=== PATIENT | male | born 2000 | race Caucasian/White ===

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

== ENCOUNTER 2023-05-31 23:09 | Emergency (ER) | payer BC, SELFPAY ==
[2023-05-31 23:11] VITALS: BP 138/81; PULSE 111; RESP 18; TEMP 36.7; BMI 24.6
[2023-05-31 23:13] VITALS: BP 138/81; PULSE 111; RESP 18; TEMP 36.7
--- OUTSIDE RECORDS SUMMARY | 2023-05-31 23:44 | XMS RPT_ITS | CCD ---
Author Name Unknown Address [address] [place] [address] Organization [facility] Care Team Providers Care Census Taker Name Role Phone Unavailable Primary Care Provider Tahir Jacobson MD Primary Care Provider TAHIR CURRY Primary Care Unavailable MINDA MILTON Referring Unavailable TAHIR CURRY Primary Care Unavailable TAHIR CURRY Referring Unavailable TAHIR CURRY Primary Care Unavailable TAHIR CURRY Attending Unavailable TAHIR CURRY Primary Care Unavailable Allergies Allergy Classification Reported Allergen(s) Allergy Type Date of Onset Reaction(s) Facility (4 sources) Seasonal allergy; Translations: [SEASONAL ALLERGIES] Allergy to substance 5 Other: See Comments [facility] Medications Completed/Discontinued Medications Medication Drug Class(es) Dates Sig (Normalized) Sig (Original) [id number] 200 actuat albuterol 0.09 mg/actuat metered dose inhaler (2 sources) beta2-Adrenergic Agonist Start: 08-18-2014 End: 01-29-2023 take 2 puff(s) by inhalation every six hours as needed for wheezing albuterol HFA (PROVENTIL HFA, VENTOLIN HFA) 90 mcg/actuation inhaler Indications: Acute bronchitis Inhale 2 Puffs as instructed every 6 hours as needed for Wheezing/Shortness of Breath. 1 Inhaler 2 08/18/2014 01/29/2023 Discontinued Problems Active Problems Problem Classification Problem Date Documented Date Episodic/Chronic Other non-traumatic joint disorders (1 source) Pain in right shoulder; Translations: [Pain in joint, shoulder region] 01-29-2023 Episodic Other nutritional; endocrine; and metabolic disorders (1 source) Unintentional weight loss; Translations: [Abnormal weight loss] 08-28-2023 Episodic Other upper respiratory disease (1 source) Seasonal allergy; Translations: [Other seasonal allergic rhinitis] 01-30-2023 Chronic Other upper respiratory infections (1 source) Sore throat symptom; Translations: [Acute pharyngitis, unspecified] Episodic Sprains and strains (1 source) Strain of muscle, fascia and tendon of lower back, initial encounter; Translations: [Lumbar strain, initial encounter] Onset: 05-21-2023 Episodic Past or Other Problems Problem Classification Problem Date Documented Date Episodic/Chronic Immunizations and screening for infectious disease (4 sources) Patient encounter status; Translations: [Encounter for screening for human immunodeficiency virus [HIV]] Onset: 01-29-2023 01-29-2023 Episodic Other nutritional; endocrine; and metabolic disorders (1 source) Abnormal weight loss; Translations: [Weight loss, non-intentional] Onset: 01-29-2023 Episodic Results Test Name Value Interpretation Reference Range Facil ity Vital Signs Date Time Vital Sign Value Performing Clinician Faci lity 01-29-2023 13:39-0400 Body height 177.2 cm Tahir Curry MD Work Phone: [facility] 01-29-2023 13:39-0400 Body weight 72.48 kg Tahir Curry MD Work Phone: [facility] 01-29-2023 13:39-0400 Diastolic blood pressure 68 mm[Hg] Tahir Curry MD Work Phone: [facility] 01-29-2023 13:39-0400 Heart rate 68 /min Tahir Curry MD Work Phone: [facility] 01-29-2023 13:39-0400 Respiratory rate 18 /min Tahir Curry MD Work Phone: [facility] 01-29-2023 13:39-0400 Systolic blood pressure 112 mm[Hg] Tahir Curry MD Work Phone: [facility] 12-04-2021 10:30-0400 Body temperature 97.5 [degF] Martha Fulton APRN.CNP Work Phone: [facility] 12-04-2021 10:30-0400 Body weight 65.77 kg Martha Fulton APRN.PERFORMANCE TESTER Work Phone: [facility] 12-04-2021 10:30-0400 Diastolic blood pressure 70 mm[Hg] Martha Fulton APRN.PERFORMANCE TESTER Work Phone: [facility] 12-04-2021 10:30-0400 Heart rate 61 /min Martha Fulton APRN.PERFORMANCE TESTER Work Phone: [facility] 12-04-2021 10:30-0400 Respiratory rate 20 /min Martha Fulton APRN.PERFORMANCE TESTER Work Phone: [facility] 12-04-2021 10:30-0400 SaO2% (BldA) [Mass fraction] 98 % Martha Fulton APRN.PERFORMANCE TESTER Work Phone: [facility] 12-04-2021 10:30-0400 Systolic blood pressure 92 mm[Hg] Martha Fulton APRN.PERFORMANCE TESTER Work Phone: [facility] Encounters Encounter Date Encounter Type Care Provider Facility Start: 05-21-2023 End: 05-21-2023 ambulatory TAHIR CURRY Facility:[facility] Start: 02-02-2023 Telephone encounter Tahir kohler MD Work Phone: [facility] Procedures Date Procedure Procedure Detail Performing Clinician Start: 12-04-2021 STREP A MOLECULAR (POC) Martha Fulton APRN.PERFORMANCE TESTER Work Phone: Plan of Treatment Date Care Activity Detail Author Start: 01-30-2024 COVID-19 VACCINE (#1) COVID-19 VACCI NE (#1) [facility] Immunizations Immunization Date Immunization Notes Care Provider Fa cility 07-21-2020 influenza, injectabl e, quadrivalent, preservative free Tahir Curry MD Work Phone: [facility] Work Phone: 07-21-2020 meningococcal B vacc ine, recombinant, OMV, adjuvanted Tahir Curry MD Work Phone: [facility] Work Phone: 04-09-2019 influenza, injectabl e, quadrivalent, preservative free Tahir Curry MD Work Phone: [facility] Work Phone: 04-09-2019 meningococcal B vacc ine, recombinant, OMV, adjuvanted Tahir Curry MD Work Phone: [facility] Work Phone: 12-03-2017 hepatitis A vaccine, pediatric/adolescent dosage, 2 dose schedule Tahir Curry MD Work Phone: [facility] Work Phone: 12-03-2017 meningococcal polysaccharide (groups A, C, Y and W-135) diphtheria toxoid conjugate vaccine (MCV4P) Tahir Curry MD Work Phone: [facility] Work Phone: 12-03-2017 varicella virus vaccine Vict kelvin Curry MD Work Phone: [facility] Work Phone: 12-03-2015 hepatitis A vaccine, pediatric/adolescent dosage, 2 dose schedule Tahir Curry MD Work Phone: [facility] Work Phone: 12-03-2015 Human Papillomavirus 9-valent vaccine Tahir Curry MD Work Phone: [facility] Work Phone: 01-07-2014 human papilloma viru s vaccine, quadrivalent Tahir Curry MD Work Phone: [facility] Work Phone: 01-07-2014 meningococcal polysaccharide (groups A, C, Y and W-135) diphtheria toxoid conjugate vaccine (MCV4P) Tahir Curry MD Work Phone: [facility] Work Phone: 01-07-2014 tetanus toxoid, redu yunior diphtheria toxoid, and acellular pertussis vaccine, adsorbed Tahir Curry MD Work Phone: [facility] Work Phone: 05-13-2013 influenza, live, intranasal, quadrivalent Tahir Curry MD Work Phone: [facility] Work Phone: 01-12-2011 influenza virus vacc ine, live, attenuated, for intranasal use Tahir Curry MD Work Phone: [facility] Work Phone: 01-28-2010 influenza virus vacc ine, live, attenuated, for intranasal use Tahir Curry MD Work Phone: [facility] Work Phone: 06-01-2009 novel influenza-H1N1 -09, preservative-free, injectable Tahir Curry MD Work Phone: [facility] Work Phone: 04-07-2009 novel influenza-H1N1 -09, preservative-free, injectable Tahir Curry MD Work Phone: [facility] Work Phone: 03-09-2009 influenza virus vacc ine, live, attenuated, for intranasal use Tahir Curry MD Work Phone: [facility] Work Phone: 05-04-2008 influenza virus vacc ine, live, attenuated, for intranasal use Tahir Curry MD Work Phone: [facility] Work Phone: 02-14-2006 diphtheria, tetanus toxoids and acellular pertussis vaccine, unspecified formulation Tahir Curry MD Work Phone: [facility] Work Phone: 02-14-2006 measles, mumps and rubella virus vaccine Tahir Curry MD Work Phone: [facility] Work Phone: 02-14-2006 poliovirus vaccine, inactivated Tahir Curry MD Work Phone: [facility] Work Phone: 05-08-2003 influenza virus vacc ine, whole virus Tahir Curry MD Work Phone: [facility] Work Phone: 04-02-2003 influenza virus vacc ine, whole virus Tahir Curry MD Work Phone: [facility] Work Phone: 12-24-2002 diphtheria, tetanus toxoids and acellular pertussis vaccine, unspecified formulation Tahir Curry MD Work Phone: [facility] Work Phone: 12-24-2002 pneumococcal conjuga te vaccine, 7 valent Tahir Curry MD Work Phone: [facility] Work Phone: 12-24-2002 varicella virus vaccine Vict kelvin Curry MD Work Phone: [facility] Work Phone: 06-13-2002 haemophilus influenz ae type b conjugate and Hepatitis B vaccine Tahir Curry MD Work Phone: [facility] Work Phone: 06-13-2002 measles, mumps and rubella virus vaccine Tahir Curry MD Work Phone: [facility] Work Phone: 06-13-2002 poliovirus vaccine, inactivated Tahir Curry MD Work Phone: [facility] Work Phone: 2001 diphtheria, tetanus toxoids and acellular pertussis vaccine, unspecified formulation Tahir Curry MD Work Phone: [facility] Work Phone: 2001 haemophilus influenz ae type b vaccine, PRP-T conjugate Tahir Curry MD Work Phone: [facility] Work Phone: 2001 pneumococcal conjuga te vaccine, 7 valent Tahir Curry MD Work Phone: [facility] Work Phone: 2001 diphtheria, tetanus toxoids and acellular pertussis vaccine, unspecified formulation Tahir Curry MD Work Phone: [facility] Work Phone: 2001 haemophilus influenz ae type b vaccine, PRP-T conjugate Tahir Curry MD Work Phone: [facility] Work Phone: 2001 pneumococcal conjuga te vaccine, 7 valent Tahir Curry MD Work Phone: [facility] Work Phone: 2001 poliovirus vaccine, inactivated Tahir Curry MD Work Phone: [facility] Work Phone: 2001 diphtheria, tetanus toxoids and acellular pertussis vaccine, unspecified formulation Tahir Curry MD Work Phone: [facility] Work Phone: 2001 haemophilus influenz ae type b conjugate and Hepatitis B vaccine Tahir Curry MD Work Phone: [facility] Work Phone: 2001 pneumococcal conjuga te vaccine, 7 valent Tahir Curry MD Work Phone: [facility] Work Phone: 2001 poliovirus vaccine, inactivated Tahir Curry MD Work Phone: [facility] Work Phone: 2001 hepatitis B vaccine, pediatric or pediatric/adolescent dosage Tahir Curry MD Work Phone: [facility] Work Phone: Payers Date Payer Category Payer Unknown [employer] PPO OOS [id number] 2021-Present [phone] [id number] [place] [address] PPO [id number] 2021 Unknown [employer] PPO OOS [id number] 2021-Present [phone] [address] [place] [address] PPO [id number] 2021 Unknown [id number] Social History Date Type Detail Facility Start: 08-18-2014 Tobacco smoking stat us NHIS Never smoked tobacco [facility] Start: 08-18-2014 Tobacco use and exposure Smoke less tobacco non-user [facility] Start: 12-04-2021 Alcohol intake Not Asked [facility] Start: 2001 Sex Assigned At Not on file [facility] Start: 11-24-2021 End: 12-04-2021 Exposure to SARS-CoV-2 (event) Not sure [facility] Start: 01-29-2023 Alcohol intake Current drinke r of alcohol (finding) [facility] Start: 05-11-2020 End: 01-29-2023 History of Social function [facility] Work Phone: Start: 05-11-2020 End: 01-29-2023 Alcohol Use Disorder Identification Test - Consumption [AUDIT-C] [facility] Work Phone: How often to you hav e a drink containing alcohol? 2-4 times a month [facility] Work Phone: How many standard dr inks containing alcohol do you have on a typical day? 3 or 4 [facility] Work Phone: How often do you hav e 6 or more drinks on 1 occasion? Less than monthly [facility] Work Phone: Adult Depression Scr eening Assessment 2 [facility] Work Phone: Start: 01-29-2023 Education 12 [facility] Progress note 05-21-2023 Note Date & Type Note Facility 05-21-2023 Note HNO ID: [id number] Author: Aroldo Jensen RT(R) Service: ? Author Type: Technologist Type: Progress Notes Filed: 05/21/2023 10:59 AM Note Text: Radiology Service Progress Note PATIENT NAME: Dea Flowers DATE OF SERVICE: May 21, 2023 TIME: 10:53 AM PATIENT IDENTITY VERIFICATION COMPLETED USING TWO (2) IDENTIFIERS: Name and Date of confirmed by patient verbally. FALL SCREENING: Has the patient had 2 falls in the last year or 1 fall with injury or currently using an Ambulatory Assistive Device (Walker, Cane, Wheelchair, Crutches, etc.)? No PATIENT GENDER DATA: Male PATIENT RELEVANT IMPLANT DATA REVIEWED: Not Applicable RADIOLOGY DEPARTMENT: General X-ray: Exam(s) Completed: Spine X-Ray(s): Lumbar AP / LAT / L5-S1 PERIPHERAL IV DATA: Not applicable SIGNED BY: RT Jessica(R) May 21, 2023 10:[address] [facility] Progress note 05-21-2023 Note Date & Type Note Facility 05-21-2023 Note HNO ID: [id number] Author: Minda Milton APRN.PERFORMANCE TESTER Service: ? Author Type: Nurse Practitioner Type: Progress Notes Filed: 05/21/2023 11:29 AM Note Text: This note was created using I.Systemsriter. Subjective Dea Flowers is a 23 year old male. 23 year old male with no PMH presents for back pain. 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 Has used Ibuprofen Has seen chiropractor for same Denies IV drug, saddle anesthesia, inability to ambulate or history of DM The history is provided by the patient. No chemical treatment operator was used. Back Pain This is a new problem. The current episode started more than 1 week ago. The problem occurs constantly. The problem has not changed since onset.The pain is associated with lifting heavy objects. The pain is present in the lumbar spine. Quality: sharp AND sore The pain does not radiate. The pain is at a severity of 5/10. The pain is moderate. The symptoms are aggravated by bending, twisting and certain positions. The pain is The same all the time. Stiffness is present All day. Pertinent negatives include no chest pain, no fever, no numbness, no weight loss, no headaches, no abdominal pain, no abdominal swelling, no bowel incontinence, no perianal numbness, no bladder incontinence, no dysuria, no pelvic pain, no leg pain, no paresthesias, no paresis, no tingling and no weakness. He has tried NSAIDs for the symptoms. The treatment provided mild relief. PAST MEDICAL HISTORY Diagnosis Date ADHD (attention deficit hyperactivity disorder) 04/08/2013 Depression with anxiety 09/03/2017 Major depressive disorder with single episode 06/28/2016 PAST SURGICAL HISTORY Procedure Laterality Date NONE ALLERGIES Seasonal Allergies MEDICATIONS cetirizine (ZYRTEC) 10 mg tablet Take 1 tablet by mouth once daily. predniSONE (DELTASONE) 10 mg tablet Take 4 tabs daily for 3 days, then 2 tabs daily for 3 days, then 1 tab daily for 3 days with food. cyclobenzaprine (FLEXERIL) 10 mg tablet Take 1 tablet by mouth three times a day as needed for muscle spasm. fluticasone (FLONASE) 50 mcg/actuation nasal spray Use 2 Sprays in each nostril once daily. Rinse mouth after use. (Patient not taking: Reported on 01/29/2023) FAMILY HISTORY Problem Relation Age of Onset No Known Problems Mother No Known Problems Father no contact No Known Problems Sister No Known Problems Brother Lung Cancer Maternal Grandfather No Known Problems Paternal Grandmother no contact No Known Problems Paternal Grandfather no contact Social History Tobacco Use Smoking status: Never Smokeless tobacco: Never Substance Use Topics Alcohol use: Yes Drug use: Yes Frequency: 3.0 times per week Types: Marijuana Review of Systems Constitutional: Negative for fever and weight loss. Respiratory: Negative for apnea, cough, choking and chest tightness. Cardiovascular: Negative for chest pain. Gastrointestinal: Negative for abdominal pain, bowel incontinence, diarrhea, nausea and vomiting. Genitourinary: Negative for bladder incontinence, dysuria and pelvic pain. Musculoskeletal: Positive for back pain. Skin: Negative for color change, pallor, rash and wound. Allergic/Immunologic: Negative for environmental allergies, food allergies and immunocompromised state. Neurological: Negative for tingling, weakness, numbness, headaches and paresthesias. Hematological: Negative for adenopathy. Does not bruise/bleed easily. Psychiatric/Behavioral: Negative for agitation and behavioral problems. Objective BP 122/72 Pulse 96 Temp 36.3 ?C (97.4 ?F) Resp 16 Wt 78.5 kg (173 lb) SpO2 96% BMI 25.00 kg/m? Physical Exam Vitals and nursing note reviewed. Constitutional: General: He is not in acute distress. Appearance: Normal appearance. He is not ill-appearing, toxic-appearing or diaphoretic. HENT: Head: Normocephalic and atraumatic. Right Ear: External ear normal. Left Ear: External ear normal. Nose: Nose normal. No congestion or rhinorrhea. Mouth/Throat: Mouth: Mucous membranes are moist. Pharynx: Oropharynx is clear. No oropharyngeal exudate or posterior oropharyngeal erythema. Eyes: General: Right eye: No discharge. Left eye: No discharge. Extraocular Movements: Extraocular movements intact. Conjunctiva/sclera: Conjunctivae normal. Pupils: Pupils are equal, round, and reactive to light. Cardiovascular: Rate and Rhythm: Normal rate and regular rhythm. Pulses: Normal pulses. Heart sounds: Normal heart sounds. No murmur heard. No friction rub. No gallop. Pulmonary: Effort: Pulmonary effort is normal. No respiratory distress. Breath sounds: Normal breath sounds. No stridor. No wheezing, rhonchi or rales. (more content not included)... [facility] Note 02-06-2023 Telephone Encounter - Martha Julian Ma - 02/06/2023 12:06 PM EDTTelephone Encounter - Enrico Rivera Ma - 02/02/2023 8:36 AM EDTTelephone Encounter - Enrico Rivera Ma - 02/02/2023 8:35 AM EDT Note Date & Type Note Facility 02-06-2023 Miscellaneous Notes Formattin g of this note might be different from the original. Letter mailed to pt home of results. Martha Julian MA Left message to call office. 02/02/2023 8:36 AM ----- Message from Tahir Curry MD sent at 02/02/2023 3:08 AM EDT ----- Test results are within normal with mild glucose elevation. documented in this encounter [facility] Progress note 01-29-2023 Note Date & Type Note Facility 01-29-2023 Note HNO ID: [id number] Author: Tahir Curry MD Service: ? Author Type: Physician Type: Progress Notes Filed: 01/30/2023 1:09 PM Note Text: This note was created using Kynetxter. Subjective Patient presents with: [facility] Dea Flowers is a 22 year old male. He used to see Dr. Conchis Dave at [facility]. He had a history of anxiety, depression, and ADHD off medications for a few years now. He felt this was under control with behavioral changes. He had seasonal allergies, as well as allergies to animal dander. He was doing reasonably okay, even as he had a pet dog. We discussed allergy referral but his symptoms were generally stable on Zyrtec. He injured his right shoulder several weeks ago doing reverse dips for exercise. His work referred him to a provider in [place] who ordered physical therapy. This was getting better. His concern is his T level. He had a hard time building muscle and gaining weight. He stopped working out due to this injury and his weight dropped rapidly from stopping his weight lifting exercises. He had no problems with erectile dysfunction. Review of Systems Constitutional: Positive for unexpected weight change. Negative for appetite change, chills, fatigue and fever. HENT: Positive for congestion, rhinorrhea and sneezing. Negative for sinus pain and sore throat. Eyes: Negative for visual disturbance. Respiratory: Negative for cough, chest tightness, shortness of breath and wheezing. Cardiovascular: Negative for chest pain, palpitations and leg swelling. Gastrointestinal: Negative for abdominal pain, diarrhea, nausea and vomiting. Genitourinary: Negative for difficulty urinating, dysuria, penile pain and testicular pain. Musculoskeletal: Negative for arthralgias and myalgias. Skin: Negative for color change. Neurological: Negative for dizziness, weakness, numbness and headaches. Psychiatric/Behavioral: Negative for dysphoric mood. The patient is not nervous/anxious and is not hyperactive. PAST MEDICAL HISTORY Diagnosis Date ADHD (attention deficit hyperactivity disorder) 04/08/2013 Depression with anxiety 09/03/2017 Major depressive disorder with single episode 06/28/2016 PAST SURGICAL HISTORY Procedure Laterality Date NONE FAMILY HISTORY Problem Relation Age of Onset No Known Problems Mother No Known Problems Father no contact No Known Problems Sister No Known Problems Brother Lung Cancer Maternal Grandfather No Known Problems Paternal Grandmother no contact No Known Problems Paternal Grandfather no contact Social History Tobacco Use Smoking status: Never Smokeless tobacco: Never Substance Use Topics Alcohol use: Yes Drug use: Yes Frequency: 3.0 times per week Types: Marijuana ALLERGIES Allergen Reactions Seasonal Allergies Other: See Comments Runny nose, watery eyes Current Outpatient Medications Medication Sig cetirizine (ZYRTEC) 10 mg tablet Take 1 tablet by mouth once daily. fluticasone (FLONASE) 50 mcg/actuation nasal spray Use 2 Sprays in each nostril once daily. Rinse mouth after use. (Patient not taking: Reported on 01/29/2023) No current facility-administered medications for this visit. Objective BP 112/68 (BP Site: Left Arm, BP Position: Sitting, BP Cuff Size: Large Adult) Pulse 68 Resp 18 Ht 177.2 cm (5' 9.75 ) Wt 72.5 kg (159 lb 12.8 oz) BMI 23.09 kg/m? Physical Exam Constitutional: Appearance: Normal appearance. HENT: Head: Normocephalic. Nose: Congestion present. No rhinorrhea. Mouth/Throat: Mouth: Mucous membranes are moist. Pharynx: Oropharynx is clear. Eyes: Extraocular Movements: Extraocular movements intact. Conjunctiva/sclera: Conjunctivae normal. Cardiovascular: Rate and Rhythm: Normal rate and regular rhythm. Heart sounds: No murmur heard. No gallop. Pulmonary: Effort: No respiratory distress. Breath sounds: Normal breath sounds. No wheezing or rales. Abdominal: General: Abdomen is flat. Palpations: Abdomen is soft. There is no mass. Tenderness: There is no abdominal tenderness. Hernia: No hernia is present. There is no hernia in the left inguinal area or right inguinal area. Genitourinary: Pubic Area: No rash. Penis: Normal and circumcised. Testes: Normal. Musculoskeletal: Cervical back: Neck supple. Lymphadenopathy: Cervical: No cervical adenopathy. Lower Body: No right inguinal adenopathy. No left inguinal adenopathy. Neurological: Mental Status: He is alert. Assessment and Plan 1. Routine medical exam - ICD9: V70.0, ICD10: Z00.00 (primary diagnosis) - Counseled on healthy diet and regular exercise - Counseled on limiting alcohol intake to 2 drinks per day - Depression screening tool completed and reviewed with patient. Based on score and interview, patient is not at risk for depression and recommended no further intervention at this time. With his history, he w (more content not included)... [facility] History of Present illness Narrative 01-29-2023 Tahir Curry MD - 01/29/2023 2:21 PM EDT Note Date & Type Note Facility 01-29-2023 History of Presen t illness Narrative This note was created using [employer]. Subjective Patient presents with: Establish Hansa Dea Flowers is a 22 year old male. He used to see Dr. Conchis Dave at [facility]. He had a history of anxiety, depression, and ADHD off medications for a few years now. He felt this was under control with behavioral changes. He had seasonal allergies, as well as allergies to animal dander. He was doing reasonably okay, even as he had a pet dog. We discussed allergy referral but his symptoms were generally stable on Zyrtec. He injured his right shoulder several weeks ago doing reverse dips for exercise. His work referred him to a provider in [place] who ordered physical therapy. This was getting better. His concern is his T level. He had a hard time building muscle and gaining weight. He stopped working out due to this injury and his weight dropped rapidly from stopping his weight lifting exercises. He had no problems with erectile dysfunction. Review of Systems Constitutional: Positive for unexpected weight change. Negative for appetite change, chills, fatigue and fever. HENT: Positive for congestion, rhinorrhea and sneezing. Negative for sinus pain and sore throat. Eyes: Negative for visual disturbance. Respiratory: Negative for cough, chest tightness, shortness of breath and wheezing. Cardiovascular: Negative for chest pain, palpitations and leg swelling. Gastrointestinal: Negative for abdominal pain, diarrhea, nausea and vomiting. Genitourinary: Negative for difficulty urinating, dysuria, penile pain and testicular pain. Musculoskeletal: Negative for arthralgias and myalgias. Skin: Negative for color change. Neurological: Negative for dizziness, weakness, numbness and headaches. Psychiatric/Behavioral: Negative for dysphoric mood. The patient is not nervous/anxious and is not hyperactive. PAST MEDICAL HISTORY Diagnosis Date ADHD (attention deficit hyperactivity disorder) 04/08/2013 Depression with anxiety 09/03/2017 Major depressive disorder with single episode 06/28/2016 PAST SURGICAL HISTORY Procedure Laterality Date NONE FAMILY HISTORY Problem Relation Age of Onset No Known Problems Mother No Known Problems Father no contact No Known Problems Sister No Known Problems Brother Lung Cancer Maternal Grandfather No Known Problems Paternal Grandmother no contact No Known Problems Paternal Grandfather no contact Social History Tobacco Use Smoking status: Never Smokeless tobacco: Never Substance Use Topics Alcohol use: Yes Drug use: Yes Frequency: 3.0 times per week Types: Marijuana ALLERGIES Allergen Reactions Seasonal Allergies Other: See Comments Runny nose, watery eyes Current Outpatient Medications Medication Sig cetirizine (ZYRTEC) 10 mg tablet Take 1 tablet by mouth once daily. fluticasone (FLONASE) 50 mcg/actuation nasal spray Use 2 Sprays in each nostril once daily. Rinse mouth after use. (Patient not taking: Reported on 01/29/2023) No current facility-administered medications for this visit. Objective BP 112/68 (BP Site: Left Arm, BP Position: Sitting, BP Cuff Size: Large Adult) Pulse 68 Resp 18 Ht 177.2 cm (5' 9.75 ) Wt 72.5 kg (159 lb 12.8 oz) BMI 23.09 kg/m Physical Exam Constitutional: Appearance: Normal appearance. HENT: Head: Normocephalic. Nose: Congestion present. No rhinorrhea. Mouth/Throat: Mouth: Mucous membranes are moist. Pharynx: Oropharynx is clear. Eyes: Extraocular Movements: Extraocular movements intact. Conjunctiva/sclera: Conjunctivae normal. Cardiovascular: Rate and Rhythm: Normal rate and regular rhythm. Heart sounds: No murmur heard. No gallop. Pulmonary: Effort: No respiratory distress. Breath sounds: Normal breath sounds. No wheezing or rales. Abdominal: General: Abdomen is flat. Palpations: Abdomen is soft. There is no mass. Tenderness: There is no abdominal tenderness. Hernia: No hernia is present. There is no hernia in the left inguinal area or right inguinal area. Genitourinary: Pubic Area: No rash. Penis: Normal and circumcised. Testes: Normal. Musculoskeletal: Cervical back: Neck supple. Lymphadenopathy: Cervical: No cervical adenopathy. Lower Body: No right inguinal adenopathy. No left inguinal adenopathy. Neurological: Mental Status: He is alert. Assessment and Plan 1. Routine medical exam - ICD9: V70.0, ICD10: Z00.00 (primary diagnosis) - Counseled on healthy diet and regular exercise - Counseled on limiting alcohol intake to 2 drinks per day - Depression screening tool completed and reviewed with patient. Based on score and interview, patient is not at risk for depression and recommended no further intervention at this time. With his history, he will call for referral to behavioral health if needed. - Discussed safe sex practices and avoidance of STIs 2. Seasonal allergies - ICD9: 477.9, ICD10: J30.2 - Restart FLONASE. We agreed allergy consult was not need - CETIRIZINE 10 MG TABLET 3. Acute pain of right shoulder - ICD9: 719.41, ICD10: M25.511 Per company provider. 4. Weight loss, non-intentional - ICD9: 783.21, ICD10: R63.4 - Limitations of testing were discussed. - CBC - BASIC METABOLIC PNL - TESTOSTERONE TOTAL 5. Screening for HIV without presence of risk factors - ICD9: V73.89, ICD10: Z11.4 - HIV 1 2 COMBO(AG/AB),WITH REFLEX TO DIFFERENTIATION 6. Encounter for hepatitis C screening test for low risk patient - ICD9: V73.89, ICD10: Z11.59 - HEPATITIS C ANTIBODY IA WITH CONFIRMATION Tahir Curry MD documented in this encounter [facility] History of Present illness Narrative 12-04-2021 Martha Fulton APRN.PERFORMANCE TESTER - 12/04/2021 10:30 AM EDT Note Date & Type Note Facility 12-04-2021 History of Presen t illness Narrative CC: Patient presents with: Sore Throat: x 3days HPI: Dea Flowers is a 21 year old male who presents to the office with complaint of sore throat for a few days. Symptoms are worsening Associated symptoms includes sore throat and fever. Denies headache, ear pain, decreased appetite, nausea, vomiting and diarrhea. Treatments tried include nothing so far. with no relief of symptoms. Sick contacts: unknown. History of asthma, frequent episodes of bronchitis, chronic bronchitis, bronchiectasis or COPD: No Smoker: No Seasonal/environmental allergies: No The ROS is otherwise negative. The patient's pmh, medications, allergies, and past visits are reviewed. PHYSICAL EXAM: There were no vitals taken for this visit. General appearance: alert, cooperative, pleasant, in no acute distress Head: Normocephalic Eyes: EOM's intact, conjunctiva pink and moist, no icterus, sclera white, non-injected Heart: Negative. RRR without obvious murmur, gallop, or rubs. No ectopy. Lungs: clear to auscultation, without rales or wheeze, good air exchange No past medical history on file. No past surgical history on file. ALLERGIES Seasonal Allergies MEDICATIONS albuterol HFA (PROVENTIL HFA, VENTOLIN HFA) 90 mcg/actuation inhaler Inhale 2 Puffs as instructed every 6 hours as needed for Wheezing/Shortness of Breath. sertraline (ZOLOFT) 50 mg tablet Take 50 mg by mouth. fluticasone (FLONASE) 50 mcg/actuation nasal spray Use 2 Sprays in each nostril once daily. Rinse mouth after use. fluticasone (FLONASE) 50 mcg/actuation nasal spray Use 2 Sprays in each nostril once daily. Rinse mouth after use. DOXYCYCLINE HYCLATE ORAL Take by mouth. methylphenidate ER (CONCERTA) 54 mg CR tablet Take 54 mg by mouth once daily. guanFACINE (INTUNIV) 2 mg Tb24 ER 24 hr tablet(s) Take 2 mg by mouth once daily. No family history on file. Social History Tobacco Use Smoking status: Never Smoker Smokeless tobacco: Never Used Substance Use Topics Alcohol use: Not on file Drug use: Not on file ASSESSMENT/PLAN: 1. Sore throat - ICD9: 462, ICD10: J02.9 - STREP A MOLECULAR (POC) - negative Instructed to monitor symptoms for worsening. Potential red flag symptoms discussed with the patient. Reviewed appropriate action plan to take if red flag symptoms occur. Patient agreeable to treatment plan. Martha Fulton APRN.PERFORMANCE TESTER documented in this encounter [facility] Evaluation note Note Date & Type Note Facility documented in this encounter [facility] Evaluation note Note Date & Type Note Facility documented in this encounter [facility] Summary Purpose Family History No Family History Records FoundNo Family History Records Found Advance Directives No Advanced Directives Records FoundNo Advanced Directives Records Found Additional Source Comments (unrecognized sect ion and content) No Status Records FoundNo Status Records Found INFORMATION SOURCE (unrecogn ized section and content) DATE CREATED AUTHOR AUTHOR'S ORGANIZ ATION 05/22/[address] [facility] Source Comments (unrecognize d section and content) In the event this informatio n is protected by the Federal Confidentiality of Alcohol and Drug Abuse Patient Records regulations: The Federal rules restrict any use of the information to criminally investigate or prosecute any alcohol or drug abuse patient.[facility] the event this information is protected by the Federal Confidentiality of Alcohol and Drug Abuse Patient Records regulations: The Federal rules restrict any use of the information to criminally investigate or prosecute any alcohol or drug abuse patient.[facility] the event this information is protected by the Federal Confidentiality of Alcohol and Drug Abuse Patient Records regulations: The Federal rules restrict any use of the information to criminally investigate or prosecute any alcohol or drug abuse patient.[facility] Reason for Visit (unrecogniz ed section and content) Reason Comments Establish Care Reason Comments Results Care Teams (unrecognized sec tion and content) Census Taker Relationship Specialty Start Date End Date Tahir Curry MD [address] [place] [address] PCP - General Internal Medicine 01/09/23 FOR RECORDS PERTAINING TO PATIENTS WHO ARE OR HAVE BEEN ENROLLED IN A CHEMICAL DEPENDENCY/SUBSTANCEABUSE PROGRAM, SOME INFORMATION MAY BE OMITTED. This clinical summary was aggregated from multiple sources. Caution should be exercised in using it in the provision of clinical care. This summary normalizes information from multiple sources, and as a consequence, information in this document may materially change the coding, format and clinical context of patient data. In addition, data may be omitted in some cases. CLINICAL DECISIONS SHOULD BE BASED ON THE PRIMARY CLINICAL RECORDS. [facility] [facility]. provides no warranty or guarantee of the accuracy or completeness of information in this document.
--- NOTE | 2023-05-31 23:54 | EDS_ITS ---
HPI History of Present Illness Chief Complaint: Back Informant: patient Onset/Context/Timing Onset: Weeks Timing: Continuous Quality: Dull Location: Lumbar and Left Leg Current Severity: Mild Maximum Severity: Moderate Worsened by: improves with Movement Relieved by: Nothing Associated Symptoms Associated Symptoms: Radiation to Left Leg; Negative for Numbness, Tingling, Fever, Abdominal Pain, Dysuria, Unable to Ambulate, Unable to Transfer, Urinary Retention, Urinary Incontinence, Constipation or Fecal Incontinence Narrative Narrative: Healthy 23-year-old male. Complaining of several week history of lower back pain now radiating into his left buttock. No fall or trauma. No bowel or bladder incontinence. No leg weakness or numbness. No prior back surgery. Denies fever. Denies IV drug use. Has seen chiropractors in urgent care. Tried muscle relaxants without relief. Had x-rays reportedly that were negative. Prior similar symptoms: No Recent Illness/Hospitalization: No PFSH PFSH no medical history Home Medications Concerta 1 tab PO DAILY 08/08/17 [History Last Taken Unknown] Zyrtec 1 tab PO DAILY 08/08/17 [History Last Taken Unknown] doxycycline hyclate 50 mg capsule 1 tab PO BID 08/08/17 [History Last Taken Unknown] Allergy/AdvReac Type Severity Reaction Status Date / Time No Known Allergies Allergy Verified 05/31/23 23:10 Social History Smoking Status: Never smoker ROS ROS ED ROS Narrative Low back pain. No recent illness. Review of Systems ROS Unobtainable: Denies due to encephalopathy Constitutional Constitutional ED: Denies chills or fever(s) Eyes Eyes: Denies blurry vision ENT ENT ED: Denies ear pain or rhinorrhea Cardiovascular Cardiovascular: Denies chest pain or palpitations Respiratory/Chest Respiratory/Chest: Denies dyspnea Gastrointestinal Gastrointestinal: Denies abdominal pain, constipation, diarrhea, melena, nausea or vomiting Genitourinary Genitourinary ED: Denies dysuria or hematuria Musculoskeletal Musculoskeletal: Reports back pain; Denies arthralgias, myalgias or neck pain Integumentary Denies abscess or Abrasions Neurologic Neurologic: Denies headache(s) Psychiatric Psychiatric: Denies anxiety Endocrine Endocrinology: Denies cold intolerance Hematologic/Lymphatic Hematologic/Lymphatic: Denies easy bleeding Allergic/Immunologic Allergic/Immunologic ED: Denies mouth swelling, tongue swelling or urticaria EXAM Physical Exam Narrative Exam Narrative: Well-appearing 21-year-old male. Vital signs stable afebrile. H EENT exam unremarkable. Neck nontender. Full range of motion. No lymphadenopathy. Maritza ngs clear to auscultation bilaterally. Heart regular rhythm no murmur. Abdomen soft nontender. Normal bowel sounds no peritoneal signs. Moving all 4 extremities. Calves are nontender without edema or cords. 5 and 5 orientation & mobility specialist strength. Dorsi plantarflexion intact. Full range of motion of both legs. No cauda equina. No saddle anesthesia. Normal medial thigh sensation. Normal lower leg sensation. Positive straight leg raise on the left negative on the right. Back exam spine nontender. No ecchymosis or bruising. No redness or warmth. Tenderness on left SI joint. Nontender in the right. Neurologic exam is normal. No loss of sensation or motor strength. Able to stand and raise up on his toes any difficulty. No trouble walking. Const Vital Signs: 05/31/23 23:11 05/31/23 23:13 Temperature 98.0 F 98.0 F Temperature Source Temporal Temporal Pulse Rate 111 H 111 H Respiratory Rate 18 18 Blood Pressure 138/81 H 138/81 H Blood Pressure Mean 100 100 Positive well nourished and well developed; Negative for obese, cachectic, contractures or unkempt General Appearance ED: well developed and NAD; Negative for unkempt, cachectic, contractures or pallor Nutritional Appearance: Negative for cachectic or obese HEENT Reports moist mucous membranes; Denies dry mucous membranes Negative for trauma or tenderness Mouth ED: No dry mucous membranes Mouth: No dry mucous membranes Eyes PERRL and EOMs intact bilaterally General Eye ED: Negative for pale conjunctiva, scleral icterus or other Neck no lymphadenopathy, supple and no JVD General: Negative for tenderness Thyroid: Negative for other Resp normal respiratory effort and clear to auscultation bilaterally Effort and Inspection: Negative for pain with movement Auscultation: Negative for rales, rhonchi, wheezes or diminished lung sounds Percussion: Negative for other Cardio regular rate, regular rhythm, S1 normal heart sound, S2 normal heart sound and no murmurs Palpation: Negative for palpable S3 Rate: Negative for bradycardia or tachycardic Rhythm: Negative for abnormal rhythm Bruits: Negative for other GI normal to inspection, nondistended, normoactive bowel sounds, soft to palpation, non-tender, non-distended and no masses Inspection: Negative for abdominal distention Auscultation: Negative for hyperactive bowel sounds Palpation: Negative for tender or guarding Back/Spine normal to inspection and no thoracic nor lumbar tenderness Back/Spine Narrative: Left SI tenderness. Positive straight leg raise on the left. Normal motor strength and sensation lower EXTR remedies. Ambulating without difficulty. Cervical Spine: Negative for cervical spine tenderness and Negative for paracervical muscle tenderness Thoracic Spine / Upper Back: Negative for paraspinal muscle tenderness Extremity normal to inspection and no clubbing, cyanosis or edema General Extremety ED: Negative for edema or tenderness General Extremity: Negative for edema Neuro oriented x3 and no sensory deficits noted Sensorium / Orientation: alert; Negative for confused, lethargic or stuporous Sensory Exam: No other Motor Exam: strength 5/5 throughout; Negative for strength abnormal Psych mental status grossly normal Appearance: Negative for unkempt Attitude: No agitated and No other Mood & Affect: Negative for depressed, sad or tearful Skin no rashes or lesions noted and no wounds General Skin Exam: Negative for jaundice or pallor Lesions: No lesion noted Rashes: No rashes noted Trauma: Negative for abrasion, puncture or other Wounds: Negative for wounds noted MDM MDM MDM Narrative Medical decision making narrative: Well-appearing 23-year-old that has an exam consistent with acute left sciatica. Treated with ibuprofen 600 mg 3 times a day for 1 week. Follow-up with his primary care provider physician if not improving. I explained to him that x- rays and labs do not be warranted at this time. He is already had negative x- rays in urgent care. If this is not improving he can follow-up for further evaluation and possible MRI which I explained to him will most likely be unnecessary. History & Record Review Discussion w/independent historian: Patient and Significant other Additional record(s) reviewed:: Prior inpatient record, Prior outpatient record, Prior ED visit and Prior labs Discharge Plan Triage Chief Complaint: Back ED Provider: Dom Gonzalez Dx/Rx/DC Orders Clinical Impression: Sciatica of left side Instructions: ED Back Pain (Acute or Chronic), ED Sciatica Prescriptions: No Action doxycycline hyclate 50 MG capsule 1 tab PO BID Patient Comments: Concerta 1 TAB 1 tab PO DAILY Zyrtec 1 TAB 1 tab PO DAILY Primary Care Provider: Tahir Bunch Referrals: Tahir Bunch MD [Primary Care Provider] - 10-14 Days if not better Activity Restrictions/Additional Instructions: Motrin, Advil or ibuprofen 600 mg 3 times a day with food on your stomach Tylenol for pain. Ice to your posterior back and buttocks to decrease inflammation. This should progressively improve. If not improving follow-up with your primary care physician they can consider further evaluation with an MRI if necessary but most likely will be necessary. Return if increasing pain, fever, leg weakness or bowel or bladder incontinence. Disposition Disposition: Home, Self Care
== END 2023-06-01 | disposition home or self-care (01) ==
PROVIDERS: Emergency Provider Emergency Medicine; PCP Internal Medicine; Visit Provider Emergency Medicine
DX: M54.32 Sciatica, left side (principal)
CPT/HCPCS: 99282